=== PATIENT | female | born 1955 | race Caucasian/White ===

== ENCOUNTER 2018-04-16 07:59 | Day surgery (SDC) | payer MEDICARE, OTHER ==
[~2018-04-16] VITALS: Ht 157.5 cm; Wt 78.4 kg
[~2018-04-16 07:59] MED LIST: BACTDS PO; BENA20TA4 PO; CEPH-443 PO; CIPR500T4 PO; ERGO2000 PO; FLUO10TA PO; METF500T24 PO; SIMV5TAB50 PO; TRAM50TA2 PO
[2018-04-16 09:05] VITALS: Ht 157.5 cm; Wt 78.4 kg
[2018-04-16] MEDS ORDERED: ASA81 (09:09)
[2018-04-16] MEDS ORDERED: METOPROLOL (09:09)
[2018-04-16 09:28] VITALS: BP 124/69; PULSE 81; RESP 18
[2018-04-16] MEDS ORDERED: LIDOCAINE 2% (SDV) 5 ML INJ ONE (09:40)
[2018-04-16] MEDS ORDERED: PROPOFOL 40 ML ONE (09:40)
[2018-04-16 10:58] VITALS: BP 117/67; PULSE 75; RESP 20
== END 2018-04-16 11:48 | disposition home or self-care (01) ==
LOC: GIL 07:59
PROVIDERS: ATTEND Internal Medicine Gastroenterology
DX: R19.4 Change in bowel habit (principal); D12.5 Benign neoplasm of sigmoid colon; K64.8 Other hemorrhoids; E11.9 Type 2 diabetes mellitus without complications; I10 Essential (primary) hypertension
CPT/HCPCS: 82962; 88305